=== PATIENT | female | born 1995 | race Two or more races ===

== ENCOUNTER 2024-10-14 15:09 | Observation (INO) | payer MEDICAID, SELFPAY ==
[2024-10-14] VITALS (35 sets, daily range): BP systolic 110–112; BP diastolic 67–78; PULSE 86–117; RESP 18–99; TEMP 37; O2SAT 88–100; BMI 26.2
--- NOTE | 2024-10-14 16:21 | XR_ITS ---
Examination: Complete OB ultrasound greater than 14 weeks Date and time of exam: October 14, 2024 1724 hours INDICATIONS: Leaking amniotic fluid beginning 6 days ago Findings: Viable intrauterine single fetus with single amniotic sac presentation cephalic Cardiac motion 129 BPM Placenta fundal grade 2. Umbilical cord insertion seen. Amniotic fluid index 5.9 cm. Cervix 4.7 cm. Ovaries obscured by bowel gas.. Composite estimated gestational age based on BPD, head circumference, abdominal circumference, femur length is 33 weeks 6 days Estimated weight 2339 g.. Survey of intracranial anatomy, spinal anatomy, abdominal anatomy, four-chamber heart performed with no abnormalities identified. Impression: Viable uterine gestation cephalic presentation. Amniotic fluid index 5.9 cm.
[2024-10-14 17:24] LABS: ROM Kit Lot # 57809118; ROM Swab Mixed By: YOUNB; Rupture of Fetal Membranes Negative (Negative); Swb Mxed in Solvent 1 min? Yes
[2024-10-14] MEDS: RINGERS LACTATED 1000 ML 1,000 ML 100 ML IV (19:15)
--- NOTE | 2024-10-14 19:27 | PC.NURSE ---
Provider Tre given patient update at 1842 including patient status and lab/ultrasound results. Ordered to admit patient for observation for low DEJA of 5.9. Verbal orders received. Patient updated on POC with trouble locator test desk. Patient agreeable to plan. Patient transferred to room 458. Handoff report given to MAGNOLIA Stock. Care ongoing.
[2024-10-14] MEDS: valACYclovir 500 MG TABLET (NON-FORMULARY) PO (21:10)
[2024-10-14] MEDS: ACETAMINOPHEN 500 MG TABLET 1000 MG PO (21:33)
[2024-10-15] VITALS (8 sets, daily range): BP systolic 99–131; BP diastolic 56–83; PULSE 83–106; RESP 18; TEMP 36.4–37
[2024-10-15] MEDS: RINGERS LACTATED 1000 ML 1,000 ML 100 ML IV (04:43)
--- NOTE | 2024-10-15 07:00 | XR_ITS ---
Examination: Biophysical profile, ultrasound Date and time of exam: October 15, 2024 0812 hrs. Indications: Diagnosis low amniotic fluid index, leaking amniotic fluid this week Technique: Multiple transabdominal sonographic images of the pelvis abdomen obtained. Attention is directed to the breathing movement, gross body movement, amniotic fluid volume and tone. Findings: Amniotic fluid index 10.8 cm Total biophysical profile is 8 of 8. breathing movement is 2. Gross body movement is 2. tone is 2. Qualitative amniotic fluid volume is 2 Impression: Biophysical profile is 8 of 8.
--- NOTE | 2024-10-15 07:00 | XR_ITS ---
Examination: Complete OB ultrasound greater than 14 weeks Date and time of exam: October 15, 2024 0818 hrs. Indications: Leaking amniotic fluid this week Findings: Viable intrauterine single fetus with single amniotic sac presentation variable Cardiac motion 138 BPM Placenta fundal grade 2 Umbilical cord insertion seen. Amniotic fluid index 10.8 cm Cervix 4.1 cm Ovaries obscured by bowel gas. Composite estimated gestational age based on BPD, head circumference, abdominal circumference, femur length is 34 weeks 0 days Estimated weight 2398 g. Survey of intracranial anatomy, spinal anatomy, abdominal anatomy, four-chamber heart performed with no abnormalities identified. Impression: Viable intrauterine gestation variable presentation Estimated gestational age 34 weeks 0 days.
[2024-10-15] MEDS: ACETAMINOPHEN 500 MG TABLET 1000 MG PO (08:52)
[2024-10-15] MEDS: valACYclovir 500 MG TABLET (NON-FORMULARY) PO (08:52)
--- NOTE | 2024-10-15 10:15 | PD.LDPN ---
Documentation for date of: 10/15/24 OB Labor Progress Note Pelvic Exam Amniotic membrane status: Intact Contractions Monitor mode: External Contraction frequency: none Status status: Category l Assessment and Plan Comments: Patient is a 29yo with SIUP at approx 34wk presenting to L&D for vaginal leakage of fluid x4 days which she informed Dr. Pruitt of when she had her OB visit yesterday. She noted no painful/regular ctx, no vaginal bleeding. Normal movement. When she arrived for rule out of ROM, she also noted recurrent herpes outbreaks (3 times total during this ). She currently has a vulvar lesion that is improving, but previously had a lot of burning with urination when urine would contact the area. She is not taking anything for ppx. Current : This has been uncomplicated other than HSV outbreaks, she has had regular OB care with [facility] Previous pregnancies: history of 2 prior sections, first was for tachycardia ROS negative other than what was described above. Vitals wnl, afebrile General: well developed, well nourished, no acute distress, conversant Cardiac: normal heart rate Lungs: breathing without distress Abdomen: soft, gravid, non-tender, no rebound or guarding Extremities: no BLE edema Genital exam by Dr. Toledo: 1 small healing herpetic lesion on the right labia minora Per RN: No gross leakage of fluid or pooling with collection of AmniSure NST: Reactive, +accels, no decels, mod jose [place]: no regular ctx pattern Initial Formal ultrasound 10/14: Complete OB ultrasound greater than 14 weeks Date and time of exam: October 14, 2024 1724 hours INDICATIONS: Leaking amniotic fluid beginning 6 days ago Findings: Viable intrauterine single fetus with single amniotic sac presentation cephalic Cardiac motion 129 BPM Placenta fundal grade 2. Umbilical cord insertion seen. Amniotic fluid index 5.9 cm. Cervix 4.7 cm. Ovaries obscured by bowel gas.. Composite estimated gestational age based on BPD, head circumference, abdominal circumference, femur length is 33 weeks 6 days Estimated weight 2339 g.. Survey of intracranial anatomy, spinal anatomy, abdominal anatomy, four-chamber heart performed with no abnormalities identified. Impression: Viable uterine gestation cephalic presentation. Amniotic fluid index 5.9 cm. Repeat Formal ultrasound 10/15: Biophysical profile, ultrasound Date and time of exam: October 15, 2024 0812 hrs. Indications: Diagnosis low amniotic fluid index, leaking amniotic fluid this week Technique: Multiple transabdominal sonographic images of the pelvis abdomen obtained. Attention is directed to the breathing movement, gross body movement, amniotic fluid volume and tone. Findings: Amniotic fluid index 10.8 cm Total biophysical profile is 8 of 8. breathing movement is 2. Gross body movement is 2. tone is 2. Qualitative amniotic fluid volume is 2 Impression: Biophysical profile is 8 of 8. Labs: AmniSure ROM Test: Negative Assessment: Patient is a 29yo with SIUP at approx 34wk with no evidence of ROM. Patient was kept overnight for oral and IV hydration for borderline oligohydramnios. Repeat ultrasound this morning shows DEJA 10.8cm. BPP: 04/21. 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 Vitals wnl, benign exam. Reassuring status. Plan: -Discussed findings and diagnosis, answered all questions to her apparent satisfaction (Swiss speaking RN present for encounter) -Encouraged patient to continue to hydrate well at home -Rx valtrex 500mg PO BID to continue for duration of to stop the recurrent outbreaks she has been having -Continue routine follow up with OBGYN within 1 week -Discussed return precautions at length. Specifically discussed that if she feels leakage again when she goes home, to place a panty liner or pad on and walk around. If she begins soaking into the liner/pad, she should return. Shasha Toledo MD
== END 2024-10-15 10:40 | disposition home or self-care (01) ==
PROVIDERS: Admitting Provider Obstetrics & Gynecology; PCP Family Medicine; Visit Provider Obstetrics & Gynecology
DX: Z34.83 Encounter for supervision of other normal pregnancy, third trimester (principal); Z3A.34 34 weeks gestation of pregnancy
CPT/HCPCS: 59025; 59899; 76805; 76819; 84112; J7120; A9270

== ENCOUNTER 2024-11-09 14:06 | Observation (INO) | payer MEDICAID, SELFPAY ==
[2024-11-09 14:12] VITALS: BP 138/83; PULSE 90
[2024-11-09 15:49] VITALS: BP 138/83; PULSE 90; RESP 16; RESP 99; TEMP 36.8
--- NOTE | 2024-11-09 15:54 | PC.NURSE ---
RN used executive housekeeper services the patient stated that she is experiencing pain in her hips, and decreased movement. She stated the last time that she felt the patient was approxiamately 10 minutes prior to her arrival to the unit. She denies vaginal bleeding or water drainage. She reported taking tylenol for the back pain once today this morning at 8am. The patient presented her current medications, Acyclovir 400mg x 20 days, Valacyclovir 500 x 35 days. She also reported that she is scheduled to have a third on 11/18/2024. I informed the patient that I spoke with Dr. Llanos who reviewed the strip and stated that the patient should continue to take tylenol for hip pain and return to the unit if she experiences painful, frequent uterine contractions, vaginal bleeding or watery drainage she should immediately return to the triage unit. patient verbalized understanding. Discharge packet given in australian.
== END 2024-11-09 14:36 | disposition home or self-care (01) ==
PROVIDERS: Admitting Provider Obstetrics & Gynecology; Visit Provider Obstetrics & Gynecology
DX: Z34.83 Encounter for supervision of other normal pregnancy, third trimester (principal); Z3A.37 37 weeks gestation of pregnancy
CPT/HCPCS: 59899

== ENCOUNTER 2024-11-18 05:01 | Inpatient (IN) | payer MEDICAID, SELFPAY ==
[2024-11-18] VITALS (15 sets, daily range): BP systolic 94–126; BP diastolic 59–84; PULSE 60–85; RESP 12–20; TEMP 36.4–36.8; O2SAT 95–99; BMI 28.0
[2024-11-18 06:04] LABS: Basophils % (Auto) 0 % (0-2.5); Eosinophils # (Auto) 0.2 Thou/mm3 (0.0-0.5); Eosinophils % (Auto) 2 % (0-10); Hematocrit 33.7 % (36.0-46.0); Hemoglobin 11.5 g/dL (12.0-16.0); Immature Granulocytes % (Auto) 1 % (0-0); Immature Granulocytes Auto 0.12 Thou/mm3 (0.00-0.00); Lymphocytes # (Auto) 2.4 Thou/mm3 (1.0-4.8); Lymphocytes % (Auto) 26 % (10-50); Mean Corpuscular HGB Conc 34.1 g/dl (31.0-37.0); Mean Corpuscular Hemoglobin 31.9 pg (25.0-35.0); Mean Corpuscular Volume 93 fL (80-100); Monocytes # (Auto) 0.9 Thou/mm3 (0.0-0.8); Monocytes % (Auto) 9 % (0-12); Neutrophils # (Auto) 5.6 Thou/mm3 (1.8-7.7); Neutrophils % (Auto) 61 % (37-80); Nucleated Red Blood Cell % 0 /100 WBC (0); Platelet Count 179 Thou/mm3 (140-440); Red Blood Count 3.61 Miln/mm3 (4.00-5.20); White Blood Count 9.2 Thou/mm3 (3.6-11.0)
[2024-11-18 06:43] LABS: Syphilis Nonreactive (Nonreactive)
[2024-11-18] MEDS: FAMOTIDINE INJ 10 MG/ML VIAL 2 ML 20 MG IV (07:24)
[2024-11-18] MEDS: CITRIC ACID/SODIUM CITR 15 ML UDC (BICITRA) 30 ML PO (07:25)
[2024-11-18] MEDS: ceFAZolin/D5W 2 GM IV 2 GM/100 ML BAG IV (07:25)
--- NOTE | 2024-11-18 07:43 | ESHP_ITS ---
Documentation for date of: 11/18/24 OB Labor/Induct. HPI History of Present Illness : 3 Term pregnancies: 2 pregnancies: 0 Living children: 2 History of Abortions: Spontaneous and Elective: 0 History of sections: Yes (x2) History of : No Date of last menstrual period: 08/24/24 Gestational age based on last menstrual period: 12 History of present illness: 29-year-old 3 para 2-0-0-2 at today 39 weeks is admitted for repeat low- transverse . Patient had 2 previous in [place] with a vertical skin incision patient understands that will be carried via a transverse incision. Patient denies any contractions, leaking, bleeding. History of Present Dating criteria: LMP confirmed by 1st trimester US Adequate Care: Yes Labs Labs: Negative: Hepatitis B, HIV, Chlamydia, Gonorrhea and Group Beta Strep Past Medical History Surgical History SURGICAL: Positive Section (x2) Meds Home Medications and Allergies Home Medications ?Medication ?Instructions ?Recorded ?Confirmed ?Type acyclovir 400 mg tablet mg 11/09/24 History Allergies Allergy/AdvReac Type Severity Reaction Status Date / Time No Known Allergies Allergy Verified 11/18/24 05:22 OB Exam Physical Exam Vital signs: Pulse BP 82 126/77 11/18/24 07:31 11/18/24 07:31 Constitutional Constitutional: no acute distress Routine HEENT Exam Head: Present normocephalic and atraumatic Eye: Present EOMI and PERRL ENT: Present mucous membranes moist Routine Neck Exam Neck: Present supple and trachea midline Routine Cardiovascular Exam Cardiovascular: Present RRR Routine Abdominal Exam Abdominal: Present soft and normoactive bowel sounds Detailed Labor and Delivery Exam Comments: Category 1 heart tone, not in labor Routine Extremities Exam Extremities: Present full ROM Routine Skin Exam Skin: Present intact, dry and warm Routine Neurological Exam Neurological: Present alert, oriented X3 and CN II-XII intact Routine Psychiatric Exam Psychiatric: Present normal affect and normal thought process OB Results Labs 11/18/24 05:40 Labs: Short CBC 11/18/24 Range/Units 05:40 WBC 9.2 (3.6-11.0) Thou/mm3 Hgb 11.5 L (12.0-16.0) g/dL Hct 33.7 L (36.0-46.0) % Plt Count 179 (140-440) Thou/mm3 Impressions Impression: 29-year-old 3 para 2-0-0-2 at 3 9 weeks admitted for repeat low- transverse Starting hemoglobin 11.5 GTT within normal limits Anatomy scan posterior placenta cephalic presentation 3300 estimated weight NIPT within normal limits OB Assessment & Plan Additional Plan Additional Plan Comment: Repeat low-transverse Antibiotic prophylaxis DVT prophylaxis
[2024-11-18] MEDS: OXYTOCIN in NS 20 units 20 UNIT/1,000 ML BAG 125 UNIT IV ×2 (08:40→15:15)
--- NOTE | 2024-11-18 09:32 | PD.LDDELS ---
Data (Paiz) Data Hx Section: Yes (x2) : 3 Para: 2 Term: 0 : 0 : 0 Delivery Data (Paiz) Labor Data ROM Date: 11/18/24 ROM Time: 08:05 Rupture Type: AROM Amniotic Fluid: Clear Delivery Data Labor Onset Stage 1 Date: 11/18/24 Labor Onset Stage 1 Time: 08:05 Labor Onset Stage 2 Date: 11/18/24 Labor Onset Stage 2 Time: 08:05 Delivery Date: 11/18/24 Delivery Time: 08:05 Gestational age (weeks): 39 Placenta Delivery Date: 11/18/24 Placenta Delivery Time: 08:06 Delivered by: Julieth Pruitt Delivery nurse: Zhane Mak Other staff at delivery: NAOMY Other staff at delivery: Nursery Nurse Other staff at delivery: Sary Mccormick Other staff at delivery: ObanaDanica Delivery Method Delivery: Delivery Type: Repeat Anesthesia Type Primary Anesthesia: Spinal Delivery Room Medications Other Intrapartum Medications: Yes Placenta Cord Sample: Cord Blood Obtained EBL Estimated blood loss (ml): 300 Umbilical Cord Umbilical Vessels: 3 Nuchal Cord: None Body Cord: None Data (Paiz) Data Infant Gender: Female Weight Grams: 2980 1 Minute Total: 9 5 Minute Total: 9
--- NOTE | 2024-11-18 09:33 | PD.GYNPROC ---
Operative Note - PRINCIPAL ASSOCIATE Procedure Date of procedure: 11/18/24 Procedure Performed: Repeat low transverse Csection Indication: previous Csection x2 Pre-Op diagnosis: same Post-Op diagnosis: same Anesthesia type: Spinal Procedure description: Informed consent was obtained and the patient was taken to the operating room.? Identity was confirmed by double identifiers and she was placed on the operating table.The abdomen and perineum were prepped in the usual sterile fashion and a Garcia catheter was placed to continuous drainage.? Sterile drapes were applied.??A Pfannenstiel skin incision was made with a scalpel and carried to the subcutaneous fat up to the rectus fascia.? The rectus fascia was incised on either side of the midline and the incisions were extended bilaterally.? The fascia was gently dissected off the ventral surface of the rectus muscle both superiorly and inferiorly. extensive adhesiolysis was done between musle , peritoneum. Carefully a peritioneal window created hysterotomy incision made and extended bluntly with finger. Rupture of membranes revealed clear fluid. The baby was found vertex presentation and was delivered via vertex. The umbilical cord , was doubly clamped, divided and the was handed over to the waiting team. The placenta delivered by controlled cord traction . The interior of the uterus was now thorougly cleaned of all blood and debris and membranes.?The? hysterotomy was closed using 0 vicryl suture in double layers. Once the repair was completed the hysterotomy was inspected, was noted to be adequately hemostatic. The rectus fascia was repaired using Vicryl 0 in a running fashion.? The subcutaneous layer was now, approximated with 3-0 vicryl in double layers.? All bleeding points were cauterized using the Bovie.?The skin was closed using 4-0 Monocryl in a subcuticular fashion.? The skin was cleaned and a sterile dressing was applied. The patient was now undraped, the abdomen and back were thoroughly cleaned and she was now transferred to the recovery room in a stabl Estimated blood loss (ml): 300 Surgical staff Operation Date: 11/18/24 07:45 Case translator/interpretercomputer video game designer: Leigh Zavala Diagnosis Problem List Completed Was Problem List Reviewed/Reconciled?: Yes
[2024-11-18] MEDS: KETOROLAC INJ 30 MG/ML VIAL IVP (12:46)
[2024-11-18 15:34] LABS: Basophils % (Auto) 0 % (0-2.5); Eosinophils % (Auto) 0 % (0-10); Hematocrit 35.4 % (36.0-46.0); Hemoglobin 12.2 g/dL (12.0-16.0); Immature Granulocytes % (Auto) 1 % (0-0); Immature Granulocytes Auto 0.13 Thou/mm3 (0.00-0.00); Lymphocytes % (Auto) 5 % (10-50); Mean Corpuscular HGB Conc 34.5 g/dl (31.0-37.0); Mean Corpuscular Hemoglobin 32.5 pg (25.0-35.0); Mean Corpuscular Volume 94 fL (80-100); Monocytes # (Auto) 0.3 Thou/mm3 (0.0-0.8); Monocytes % (Auto) 1 % (0-12); Neutrophils # (Auto) 19.8 Thou/mm3 (1.8-7.7); Neutrophils % (Auto) 93 % (37-80); Nucleated Red Blood Cell % 0 /100 WBC (0); Platelet Count 211 Thou/mm3 (140-440); RDW Standard Deviation 46.8 fL (36.4-46.3); Red Blood Count 3.75 Miln/mm3 (4.00-5.20); White Blood Count 21.2 Thou/mm3 (3.6-11.0)
[2024-11-19 00:10] VITALS: BP 113/73; PULSE 92; RESP 16; TEMP 36.6; O2SAT 96
[2024-11-19 04:00] VITALS: BP 104/69; PULSE 74; RESP 16; TEMP 36.8; O2SAT 96
[2024-11-19 06:26] LABS: Basophils % (Auto) 0 % (0-2.5); Eosinophils % (Auto) 0 % (0-10); Hematocrit 28.5 % (36.0-46.0); Hemoglobin 9.8 g/dL (12.0-16.0); Immature Granulocytes % (Auto) 1 % (0-0); Immature Granulocytes Auto 0.11 Thou/mm3 (0.00-0.00); Lymphocytes # (Auto) 2.3 Thou/mm3 (1.0-4.8); Lymphocytes % (Auto) 13 % (10-50); Mean Corpuscular HGB Conc 34.4 g/dl (31.0-37.0); Mean Corpuscular Hemoglobin 32.8 pg (25.0-35.0); Mean Corpuscular Volume 95 fL (80-100); Monocytes # (Auto) 1.7 Thou/mm3 (0.0-0.8); Monocytes % (Auto) 9 % (0-12); Neutrophils # (Auto) 14.4 Thou/mm3 (1.8-7.7); Neutrophils % (Auto) 77 % (37-80); Nucleated Red Blood Cell % 0 /100 WBC (0); Platelet Count 205 Thou/mm3 (140-440); RDW Standard Deviation 47.6 fL (36.4-46.3); Red Blood Count 2.99 Miln/mm3 (4.00-5.20); White Blood Count 18.6 Thou/mm3 (3.6-11.0)
[2024-11-19] MEDS: KETOROLAC INJ 30 MG/ML VIAL IVP (07:20)
[2024-11-19 07:40] VITALS: BP 112/70; PULSE 82; RESP 16; TEMP 36.7; O2SAT 97
--- NOTE | 2024-11-19 11:13 | PD.LDPPPRG ---
Subjective Subjective Interval history: Patient is a 29-year-old -0-0-3 postop day #1 status post repeat #3 11/18/[address] Morgan. Patient is pleasant alert and cooperative. She is Kinyarwanda-speaking only. She reports itching of her skin. No heavy bleeding pain is controlled with oral pain medication. Per the nurses notes when they placed a Garcia catheter there might be a thought of an active herpetic lesion. Patient has been on icicle over the last month. She was okay with continuing this. Exam Vital Signs Temp Pulse Resp BP Pulse Ox O2 Del Method 98.1 F 82 16 112/70 97 Room Air 11/19/24 07:40 11/19/24 07:40 11/19/24 07:40 11/19/24 07:40 11/19/24 07:40 11/19/24 07:40 Narrative Exam Patient is alert and alert and oriented x 3 in no apparent distress Routine Abdominal Exam Abdominal: Present soft Comments: Fundus firm nontender dressing clean dry and intact Routine Extremities Exam Comments: No edema no erythema no signs of developing DVT. Objective Labs 11/19/24 05:14 Labs: Laboratory Results - last 24 hr 11/18/24 11/19/24 15:05 05:14 WBC 21.2 H D 18.6 H RBC 3.75 L 2.99 L Hgb 12.2 9.8 L D Hct 35.4 L 28.5 L MCV 94 95 MCH 32.5 32.8 MCHC 34.5 34.4 RDW Std Deviation 46.8 H 47.6 H Plt Count 211 D 205 Neut % (Auto) 93 H 77 Lymph % (Auto) 5 L 13 [place] % (Auto) 1 9 Eos % (Auto) 0 0 Baso % (Auto) 0 0 Neut # (Auto) 19.8 H 14.4 H Lymph # (Auto) 1.0 2.3 Norton # (Auto) 0.3 1.7 H Eos # (Auto) 0.0 0.0 Baso # (Auto) 0.0 0.0 Immature Gran # (Auto) 0.13 H 0.11 H Absolute Nucleated RBC 0.00 0.00 Immature Gran % 1 H 1 H Nucleated RBC % 0 0 Assessment & Plan Problem List (1) Previous delivery, delivered: Problem details: Okay to shower remove both IVs. Routine postoperative care. Status: Acute (2) Genital herpes affecting in third trimester: Problem details: Restart acyclovir. Status: Acute Time Spent With Patient Time: Total time spent is greater than 50% in coordination of care (as documented) at patient's floor/unit and/or counseling patient: Time with patient: less than 15 minutes
[2024-11-19] MEDS: ACYCLOVIR 200 MG CAPSULE 400 MG PO ×2 (14:55→22:06)
[2024-11-19 15:06] VITALS: BP 110/72; PULSE 98; RESP 16; TEMP 36.6; O2SAT 98
[2024-11-19] MEDS: Milk Of Magnesia Susp 30 ML UDC PO (15:11)
[2024-11-19] MEDS: SIMETHICONE 80 MG CHEW PO (15:11)
[2024-11-19] MEDS: HYDROcodone/APAP 5/325 TABLET 2 TAB PO (19:19)
[2024-11-19 20:20] VITALS: BP 104/67; PULSE 86; RESP 20; TEMP 36.6; O2SAT 96
[2024-11-20] MEDS: SIMETHICONE 80 MG CHEW PO (01:16)
[2024-11-20 05:35] VITALS: BP 124/85; PULSE 75; RESP 18; TEMP 36.4; O2SAT 98
[2024-11-20] MEDS: HYDROcodone/APAP 5/325 TABLET 1 TAB PO (05:40)
[2024-11-20] MEDS: ACYCLOVIR 200 MG CAPSULE 400 MG PO ×2 (05:40→14:07)
[2024-11-20 07:50] VITALS: BP 111/77; PULSE 84; RESP 18; TEMP 36.8; O2SAT 98
--- NOTE | 2024-11-20 09:15 | PD.LDDS ---
DS: Providers Provider Date of admission: 11/18/24 05:01 Primary care physician: Rob Loera MD Admitting Provider: Julieth Pruitt MD Attending Provider on Admission: Julieth Pruitt MD Consults: 11/18/24 09:40 Referral Routine Comment: Attending Provider on DC: Shasha Toledo MD Discharging Provider: Shasha Toledo MD DS: Diagnosis Discharge Diagnosis (1) delivery delivered: Status: Acute (2) Genital herpes affecting in third trimester: Status: Acute Problem List Completed Was Problem List Reviewed/Reconciled?: Yes Summary/Hosp Course Brief History: 29-year-old 3 para 2-0-0-2 at today 39 weeks is admitted for repeat low-transverse . Patient had 2 previous in [place] with a vertical skin incision patient understands that will be carried via a transverse incision. Patient denies any contractions, leaking, bleeding. She is now POD 2 s/p uncompicated RLTCS. She has had an uncomplicated post-operative course, meeting all milestones and feels ready for discharge home. She is ambulating without lightheadedness, tolerating regular diet no n/v, spontaneously voiding without issue. She has no chest pain or shortness of breath. No fevers or chills. Pain well controlled. Vitals normal, benign exam. Hemodynamically stable with no evidence of infection. Post-op Hgb 9.8. Rx iron. Peripartum Data Procedures: Procedures Operation Date: 11/18/24 07:45 Actual Procedure Side Surgeon p in OB Not Applicable Julieth Pruitt MD Status at Discharge Functional status at discharge: independent ambulation Overall status at discharge: patient is back to baseline Time Spent with Patient Time attestation: Total time spent providing and/or coordinating discharge services: Exam Vital Signs Temp Pulse Resp BP Pulse Ox O2 Del Method 98.3 F 84 18 111/77 98 Room Air 11/20/24 07:50 11/20/24 07:50 11/20/24 07:50 11/20/24 07:50 11/20/24 07:50 11/20/24 07:50 Narrative Exam General: well developed, well nourished, no acute distress, conversant Cardiac: normal heart rate Lungs: breathing without distress Abdomen: soft, post-gravid, non-tender, no rebound or guarding, pfannenstiel incision covered by dry/clean/intact prineo bandage. Incision well reapproximated. No erythema, drainage or induration. Fundus firm at u-2cm. Extremities: no pain with palpation of calves, trace edema of BLE Discharge Plan Plan Patient Disposition: HOME (Self Care) Patient condition on transfer: Stable Prescriptions/Referrals Prescriptions/Med Rec: New hydrocodone-acetaminophen 5-325 mg Tablet 1 tab PO Q6HR MDD 4 tablets PRN (Reason: Patient rated pain 7 to 8) 10 Days Qty: 12 0RF ibuprofen 800 mg tablet 800 mg PO Q8H PRN (Reason: See Comments) 10 Days Qty: 30 0RF polyethylene glycol 3350 [Miralax] 17 gram powder in packet 17 g PO QDAY Qty: 14 0RF ferrous sulfate 325 mg (65 mg iron) tablet 325 mg PO QDAY Qty: 30 0RF valacyclovir [Valtrex] 500 mg tablet 500 mg PO BID Qty: 10 0RF Discontinued valacyclovir 500 mg Tablet 500 mg PO BID 35 Days Qty: 70 0RF acyclovir 400 mg tablet Patient Comments: TAKE 1 TABLET BY MOUTH TWICE A DAY FOR 20 DAYS Referrals: Rob Loera MD [Primary Care Provider] - Patient/Caregiver Discharge Instructions Discharge Activity: activity as tolerated and other Other Discharge Activity Instructions:: vaginal rest and no heavy lifting for 6 weeks. no [address] while taking narcotic. keep incision clean and dry, do not submerge. Other Discharge Diet Instructions: Regular Education Materials: C Section Dc Print Language: Tajik Activity Restrictions/Additional Instructions: follow up in one week with Dr. Pruitt for incision check Stand Alone Forms: Tessy Award Info., Patient Portal Info Letter Discharge Order Discharge Orders: Discharge (Routine); Ordered 11/20/24 Ordered By: Shasha Toledo Planned Discharge Date 11/20/24
[2024-11-20] MEDS: INFLUENZA VIRUS QUADRIVALENT 0.5 ML SYRINGE IMi (12:27)
[2024-11-20] MEDS: DIPHTH,PERTUSS(ACELL),TET VAC 0.5 ML SYR- ADULT IMi (12:28)
== END 2024-11-20 16:15 | disposition home or self-care (01) | DRG 540 ==
LOC: S4SX 07:05 → S4NX 07:56
PROVIDERS: Obstetrics & Gynecology; Admitting Provider Student in an Organized Health Care Education/Training Program; PCP Family Medicine; Visit Provider Student in an Organized Health Care Education/Training Program
PROC: 10D00Z1 Extraction of Products of Conception, Low, Open Approach (ICD-10-PCS; CPT 59514; principal; 2024-11-18 07:30)
DX: O34.211 Maternal care for low transverse scar from previous cesarean delivery (principal); Z3A.39 39 weeks gestation of pregnancy; O98.52 Other viral diseases complicating childbirth; Z37.0 Single live birth; B00.9 Herpesviral infection, unspecified; Z79.899 Other long term (current) drug therapy
CPT/HCPCS: 36415; 59409; 85025; 86780; 86850; 86900; 86901; 90686; 90715; 94762; A4649; J0689; J1100; J1885; J2250; J2274; J2371; J2405; J2590; J3010; J3490; J7120; S0191; A9270; J2270; J9060